=== PATIENT | male | born 1960 | race Caucasian/White ===

== ENCOUNTER 2016-11-07 19:36 | Emergency (ER) | payer MEDICARE ==
[~2016-11-07] VITALS: Ht 182.9 cm; Wt 86.3 kg
[~2016-11-07 19:36] MED LIST: [UNRECOGNIZED DRUG - CODE] PO
[2016-11-07 19:39] VITALS: BP 119/72; PULSE 78; RESP 16; O2SAT 99
--- NOTE | 2016-11-07 21:01 | ED.REPORT ---
HPI-General Illness Date of Service November 07, 2016 ED Provider: Dr. Hidalgo Pt is a 56 year old wheelchair-bound male with a history of MS who presents to the ED with concerns for bilateral foot swelling and "skin tightening", onset last night. He reports that he has had this issue in the last, but never this severe. He denies any shortness of breath, cough, chest pain, history of trauma to the feet, or any other symptoms. Pt reports that he is not on any medication for his MS. He notes some additional immobility and loss of strength in his legs , secondary to his MS. Nursing Notes Stated Complaint: FEET SWELLING Chief Complaint: Extremity Trauma Nursing Notes Reviewed: Yes Scheduled PRN Furosemide (Lasix) 20 Mg Tablet 20 MG PO DAILY PRN PRN edema Miscellaneous Medications Naltrexone-Expunged Drug, Do Not Renew! (Revia-Expunged Drug, Do Not Renew!) 50 Mg Tablet 4.5 MG PO General Time Seen by MD: 21:01 Chief Complaint Other (Foot swelling) Hx Obtained From: Patient Arrived By: Walk-in Sudden in Onset?: Yes Onset Occurred: 1 day ago Symptom Duration: Since onset Severity: Current: No pain currently Severity: Maximum: No pain Similar Sx Previous: Yes Past Medical History Past Medical History MS Ambulatory Status Wheelchair Review of Systems Full Review of Systems Constitutional: Denies: Chills, Fever, Malaise, Weakness - generalized Respiratory: Denies: Non-productive cough, Shortness of breath, Wheezing Cardiovascular: Denies: Chest pain, Syncope GI: Denies: Abdominal pain, Diarrhea, Nausea, Vomiting Male: Denies Flank pain Musculoskeletal: Reports: Extremity swelling, Denies: Back pain, Joint swelling Skin: Denies Diaphoresis, Denies Rash Complete sys rev & neg: except as marked. Physical Exam Vital Signs Vital Signs Date Time Temp Pulse Resp B/P Pulse Ox O2 Delivery O2 Flow Rate FiO2 11/07/16 23:17 36.6 78 16 119/72 99 Room Air 11/07/16 19:39 36.6 78 16 119/72 99 Room Air Initial VS: Reviewed Head / Eyes: Atraumatic, Normocephalic, PERRL ENT: Mucous membranes moist, Conjunctiva normal, No scleral icterus Neck: Supple, Non-tender, Full range of motion Respiratory: Breath sounds normal, Clear to auscultation, No respiratory distress Abdomen / GI: Soft, Non-tender, No guarding, No rebound, No distention Skin: Warm, Dry, No cyanosis Neurologic: Alert, Oriented, Nonfocal Psychiatric: Mood/affect normal, Behavior normal, Normal thought content General/Constitutional: Awake, Alert, Well appearing, Well nourished, Cooperative Wheelchair bound - at baseline Cardiovascular: Heart rate NL, Regular rhythm, Heart sounds NL Upper Ext Edema: Positive: Left 2+, Right 1+ small scabs present about the left calf No JVD Interpretation & Diagnostics Lab Results Interpretation Result Diagram: 11/07/16212411/07/162124 Test 11/07/16 21:25 White Blood Count 10.4th/mm3 (3.8-10.1) Red Blood Count 4.41mil/mm3 (4.40-5.80) Hemoglobin 13.9g/dL (13.8-17.2) Hematocrit 41.4% (41.0-50.0) Mean Corpuscular Volume 93.9fL (81-100) Mean Corpuscular Hemoglobin 31.5pg (27.0-35.0) Mean Corpuscular Hemoglobin Concent 33.6% (32.0-37.0) Red Cell Distribution Width 13.7% (12.3-15.4) Platelet Count 228bil/L (150-400) Neutrophils (%) (Auto) 56.7% (40-74) Lymphocytes (%) (Auto) 29.9% (14-46) Monocytes (%) (Auto) 9.0% (4-12) Eosinophils (%) (Auto) 1.9% (0-5) Basophils (%) (Auto) 1.8% (0-3) Sodium Level 136mEq/L (134-144) Potassium Level 3.8mEq/L (3.5-5.2) Chloride Level 99mEq/L (97-108) Carbon Dioxide Level 24mmol/L (18-29) Blood Urea Nitrogen 17mg/dL (6-24) Creatinine 0.75mg/dL (0.76-1.27) Estimat Glomerular Filtration Rate 115mL/min (>59) Glucose Level 98mg/dL (60-99) Calcium Level 9.5mg/dL (8.5-10.1) Total Bilirubin 0.7mg/dL (0.0-1.2) Aspartate Amino Transf (AST/SGOT) 18U/L (0-50) Alanine Aminotransferase (ALT/SGPT) 12U/L (0-44) Alkaline Phosphatase 59U/L (25-150) Total Protein 7.2g/dL (6.4-8.4) Albumin 4.1g/dL (3.4-5.0) Thyroid Stimulating Hormone (TSH) 3.270uIU/mL (0.450-4.500) Free Thyroxine 1.26ng/dL (0.82-1.77) Hold [place] Top Tube Received (Received) US Focused Lower Ext Venous Impression: No evidence of acute occlusive deep venous thrombosis of the lower extremities. Exam Performed by: Radiologist Exam Type: Diagnostic Indication: Leg swelling right, Leg swelling left Interpretation: No evid deep vein thromb Re-Eval/Medical Decision Med Decision/Clinical Course 56-year-old male with multiple sclerosis and mostly immobile legs presents with bilateral leg edema. No dangerous cause identified, with negative ultrasound, normal albumin, normal blood work generally, and no evidence of CHF. This is a mobility independent edema in all likelihood. Physical measures discussed in detail including compression hose, elevation, and occasional use of Lasix if needed. Risks benefits alternatives discussed in some detail. Discharged in stable condition. Source of Hx: Old records Time of Eval: 22:29 Re-Evaluation/Progress Note: Pt is rechecked and informed of his labs and imaging results, and the plan to discharge him at this time, he understands and agrees. All questions are addressed. Counseled Regarding: Diagnosis, Lab results, When/why to return to ED Discharge & Departure Shift Change Sign-Out Response to Therapy: Unchanged Primary Impression: Peripheral edema Additional Impression: Multiple sclerosis Disposition: Home Discharge Condition All VS Reviewed: Yes Condition: Stable Patient Instructions: Leg Edema (ED) Additional Instructions: The source of your swelling appears to be dependent posture and relative inactivity of the muscles of your legs. It will respond best to mechanical interventions, such as elevation and mild compression stockings. If you have medical compression stockings, use those during the day. You may remove them at night. You can take Lasix in the morning if you are still swollen after a night of elevation, but the downside of that will be mild dehydration, and some tendency to lower your blood potassium. There is no evidence of clot, no other significant abnormality found on your evaluation. Return for any immediate issues. Referrals: [facility] (PCP) Scribe Attestation Portions of this note were transcribed by Amaris Pate. I, Dr. Hidalgo personally performed the history, physical exam and medical decision-making; I reviewed and confirmed the accuracy of the information in the transcribed note. Signed by: Zackery Patel, 11/07/2016 22:54 Edwardo Hidalgo MD November 07, 2016 21:01 OZIEL PATE November 07, 2016 21:09
[2016-11-07 21:36] LABS: BASOPHILS % (AUTO) 1.8 % (0-3); EOSINOPHILS % (AUTO) 1.9 % (0-5); Mean Corpuscular Hemoglobin 31.5 pg (27.0-35.0); Mean Corpuscular Volume 93.9 fL (81-100); NEUTROPHILS % (AUTO) 56.7 % (40-74); Platelet Count 228 bil/L (150-400)
[2016-11-07] MEDS ORDERED: FURO-129 PO (22:53)
[2016-11-07 23:17] VITALS: BP 119/72; PULSE 78; RESP 16; O2SAT 99
--- NOTE | 2016-11-08 08:54 | DRSVH ---
PROCEDURE: US VENOUS LEG DUPLEX BILATERAL INDICATIONS: new onset leg edema, ms TECHNIQUE: Real-time imaging, as well as color and pulse Doppler interrogation, were performed of the deep veins of both legs from the inguinal ligament to the popliteal fossa. COMPARISON: None. FINDINGS: The deep veins are normally compressible, and free of intraluminal thrombus. Color and pu lse Doppler demonstrate normal phasic intravascular flow. There is normal augmentation response to d istal compression maneuver. IMPRESSION: No evidence of deep vein thrombosis involving either the right or left lower extremities. Dictated by: Mara Khalil MD, PhD on 11/08/2016 at 8:51 Approved by: Mara Khalil MD, PhD on 11/08/2016 at 8:52
== END 2016-11-07 23:00 | disposition home or self-care (01) ==
LOC: SED 19:36
DX: R60.0 Localized edema (principal); G35 Multiple sclerosis